=== PATIENT | male | born 1985 | race Caucasian/White ===

== ENCOUNTER 2017-09-28 06:10 | Emergency (ER) | payer SELFPAY ==
[~2017-09-28] VITALS: Ht 193 cm; Wt 93.2 kg
[2017-09-28 06:14] VITALS: Ht 193 cm; Wt 93.2 kg
[2017-09-28] MEDS ORDERED: CLEOCIN HCL300 MG PO (06:28)
[2017-09-28 06:55] VITALS: BP 131/80
== END 2017-09-28 06:58 | disposition home or self-care (01) ==
LOC: D.ER 06:10
DX: K04.7 Periapical abscess without sinus (principal); F17.200 Nicotine dependence, unspecified, uncomplicated